=== PATIENT | female | born 1940 | race Caucasian/White ===

== ENCOUNTER 2018-06-21 13:24 | Emergency (ER) | payer OTHER, MEDICARE ==
[2018-06-21 13:42] VITALS: TEMP 98.2; BMI 31.6
--- NOTE | 2018-06-21 13:51 | PDOC ---
History of Present Illness - General Chief Complaint: Blood Pressure Problem Stated Complaint: BLOOD PRESSURE PROBLEM Time Seen by Provider: 06/21/18 13:51 - History of Present Illness Initial Comments: 06/21/18 13:51 77 year old with a history of breast Ca and osteoporosis and mitral valve prolapse presents with dizziness after eating breakfast with recorded bp of 200 systolic no nausea, diaphoresis, chest pain or shortness of breath no dysuria, no hematuria no coughing, no recent illness 06/21/18 14:02 Past History - Past Medical History Allergies/Adverse Reactions: Allergies Allergy/AdvReac Type Severity Reaction Status Date / Time meperidine HCl [From Demerol] Allergy Verified 06/21/18 13:36 povidone-iodine Allergy Verified 06/21/18 13:36 [From Betadine] soap [From Betadine] Allergy Verified 06/21/18 13:36 Home Medications: Ambulatory Orders Aspirin 81 mg PO DAILY 06/21/18 Losartan Potassium 25 mg PO BID #5 tablet 06/21/18 Cardiac Disorders: Yes (MVP) COPD: No HTN: Yes - Suicide/Smoking/Psychosocial Hx Smoking History: Unknown if ever smoked Have you smoked in the past 12 months: No Hx Alcohol Use: No Drug/Substance Use Hx: No *Physical Exam - Vital Signs Last Vital Signs Temp Pulse Resp BP Pulse Ox 98.2 F 81 18 194/72 H 98 06/21/18 13:37 06/21/18 13:37 06/21/18 13:37 06/21/18 13:37 06/21/18 13:37 - Physical Exam Comments: 06/21/18 14:23 normal exam 3- 4 beats of nystagmus with L gaze Moderate Sedation - Procedure Monitoring Vital Signs: Procedure Monitoring Vital Signs Temperature 98.2 F 06/21/18 13:37 Pulse Rate 81 06/21/18 13:37 Respiratory Rate 18 06/21/18 13:37 Blood Pressure 194/72 H 06/21/18 13:37 O2 Sat by Pulse Oximetry (%) 98 06/21/18 13:37 ED Treatment Course - LABORATORY CBC & Chemistry Diagram: 06/21/18 14:22 06/21/18 14:22 Medical Decision Making - Medical Decision Making 06/21/18 14:10 ED Course: 168/90 on L forearm, 178/90 on R forearm patient reports regular bp as 130/80 06/21/18 16:[address] and CXR without acute findings however, patient with history of mvp and w/ new acute symptoms will likely need ECHO call sent to PCP, discuss dispo and possible admission. 06/21/18 16:26 repeat bp 144/78 on R forearm 142/80 on L forearm improvement of dizzniess, no nausea Consulted Dr. Fair who feels patient may need to be started on a BP medication but will call back. 06/21/18 16:30 *DC/Admit/Observation/Transfer Diagnosis at time of Disposition: Dizziness, Hypertension - Discharge Dispostion Disposition: HOME Condition at time of disposition: Stable Decision to Admit order: No - Prescriptions Prescriptions: Losartan Potassium 25 mg PO BID #5 tablet - Referrals - Patient Instructions Printed Discharge Instructions: DI for High Blood Pressure Additional Instructions: You were seen in the ED for complaints of dizziness and elevated blood pressure. In the ED you were evaluated with labwork and imaging. Your results were unremarkable. There does not appear to be an acute need for immediate hospitalization. You are advised to follow up with your Primary Care Physician within 1 week. You were given a prescription for a short course of Losartan (anti-hypertension ) medication. Return to the ED immediately if you experience worsening dizziness, headache, palpitations, loss of consciousness, chest pain or shortness of breath. - Post Discharge Activity
[2018-06-21] MEDS ORDERED: MECLIZINE HCL 25 MG TABLET (FP) PO ONE (14:01)
[2018-06-21] MEDS ORDERED: MECLIZINE HCL 25 MG TABLET (FP) ONE (14:09)
--- NOTE | 2018-06-21 14:14 | PDOC ---
Attending Attestation - Resident Resident Name: Charleen Dorado - ED Attending Attestation I have performed the following: I have examined & evaluated the patient, The case was reviewed & discussed with the resident, I agree w/resident's findings & plan, Exceptions are as noted - HPI HPI: 06/21/18 14:12 Reports dizziness while traveling home At that time, her checked her blood pressure and it was 190s-200/100 Denies nausea, diaphoresis No chest pain or shortness of breath No fevers or chills - Physicial Exam PE: 06/21/18 14:13 GENERAL: The patient is in no acute distress. HEAD: Normal EYES: PERRLA, EOMI, sclera anicteric, conjunctiva clear. ENT: Ears normal, nares patent, oropharynx clear without exudates. Moist mucous membranes. NECK: Normal range of motion, supple without JVD, or masses. LUNGS: Breath sounds equal, clear to auscultation bilaterally. No wheezes, and no crackles. HEART:Regular rate and rhythm, normal S1 and S2 without murmur, rub or gallop. ABDOMEN: Soft, nontender, normoactive bowel sounds. No guarding, no rebound. No masses palpable. EXTREMITIES: Normal range of motion, no edema. No clubbing or cyanosis. No erythema, or tenderness. NEUROLOGICAL: Cranial nerves II through XII grossly intact. Normal speech. No focal neurological deficits. MUSCULOSKELETAL: Back non-tender to palpation, no CVA tenderness SKIN: Warm, Dry, normal turgor, no rashes or lesions noted. - Medical Decision Making 06/21/18 16:34 Twelve-lead EKG was performed and reviewed by me. There is normal sinus rhythm with a normal rate of 70 bpm. The axis is normal. The intervals are normal. There are no ST or T wave abnormalities. Impression: Normal twelve-lead EKG 06/21/18 16:42 Laboratory Tests 06/21/18 06/21/18 06/21/18 14:22 14:22 14:22 WBC 5.8 Hgb 13.8 Hct 39.4 D Plt Count 219 D BUN 23 H Creatinine 0.9 Troponin I < 0.02 B-Natriuretic Peptide 128.3 Urine Nitrite Ur Leukocyte Esterase 06/21/18 14:45 WBC Hgb Hct Plt Count BUN Creatinine Troponin I B-Natriuretic Peptide Urine Nitrite Negative Ur Leukocyte Esterase Negative Case reviewed with Dr Sandoval He agrees with pt discharge to home Start Losartan Follow up with him on Sunday (in 3 days) Pt counselled to return to the ER immediately for any new symptoms
[2018-06-21 14:56] LABS: BASO % 2.2 % (0-2.0); EOS % 5.6 % (0-4.5); HEMATOCRIT 39.4 % (32.4-45.2); HEMOGLOBIN 13.8 GM/dL (10.7-15.3); LYMPH % 24.9 % (8-40); MCH 32.4 pg (25.7-33.7); MEAN CELL VOLUME 92.7 fl (80-96); MEAN PLT VOLUME 9.2 fl (7.5-11.1); NEUT % 58.3 % (42.8-82.8); PLATELET COUNT 219 K/MM3 (134-434); RBC 4.25 M/mm3 (3.60-5.2); RDW 14.3 % (11.6-15.6); WHITE BLOOD COUNT 5.8 K/mm3 (4.0-10.0)
[2018-06-21 15:02] LABS: URINE APPEARANCE CLEAR; URINE BILIRUBIN NEGATIVE (<2.0 mg/dL); URINE COLOR STRAW; URINE GLUCOSE (UA) NEGATIVE (NEGATIVE); URINE KETONE NEGATIVE (NEGATIVE); URINE LEUK ESTERASE NEGATIVE (NEGATIVE); URINE NITRITE NEGATIVE (NEGATIVE); URINE PROTEIN NEGATIVE (NEGATIVE); URINE UROBILINOGEN NEGATIVE mg/dL (0.2-1.0)
[2018-06-21 15:16] LABS: ALBUMIN 3.7 g/dl (3.4-5.0); ALK PHOS 131 U/L (45-117); ANION GAP 7 MMOL/L (8-16); BILIRUBIN,TOTAL 0.6 mg/dL (0.2-1); BLOOD UREA NITROGEN 23 mg/dL (7-18); CHLORIDE 107 mmol/L (98-107); CO2 25 mmol/L (21-32); CREATININE 0.9 mg/dL (0.55-1.3); GLUCOSE,RANDOM 104 mg/dL (74-106); POTASSIUM 4.9 mmol/L (3.5-5.1); SGOT/AST 19 U/L (15-37); SGPT/ALT 25 U/L (13-61); SODIUM 139 mmol/L (136-145); TOT PROT 6.8 g/dl (6.4-8.2)
[2018-06-21] MEDS ORDERED: LOSARTAN POTASSIUM 25 MG TABLET PO ONE (16:39)
[2018-06-21 16:54] VITALS: BP 142/69; PULSE 80
--- NOTE | 2018-06-22 08:42 | EKG ---
Test Reason : Blood Pressure : / mmHG Vent. Rate : 070 BPM Atrial Rate : 070 BPM P-R Int : 170 ms QRS Dur : 088 ms QT Int : 426 ms P-R-T Axes : 073 -12 049 degrees QTc Int : 460 ms NORMAL SINUS RHYTHM ANTERIOR INFARCT , AGE UNDETERMINED ABNORMAL ECG WHEN COMPARED WITH ECG OF 03-MAY-2016 08:22, ANTERIOR INFARCT IS NOW PRESENT Confirmed by CRISTINA BARNARD, DWIGHT ([id number]) on 06/22/2018 8:42:22 AM Referred By: Confirmed By:DWIGHT EVANS MD
== END 2018-06-21 17:06 | disposition home or self-care (01) ==
LOC: JER 13:24
DX: I10 Essential (primary) hypertension (principal); I34.1 Nonrheumatic mitral (valve) prolapse; M19.90 Unspecified osteoarthritis, unspecified site; Z85.3 Personal history of malignant neoplasm of breast
CPT/HCPCS: 36415; 70450-TC; 71045-TC-FY; 80053; 81003; 81015; 83880; 84484; 85025; 87086; 93005; 93010; 99282-25

== ENCOUNTER 2018-07-05 14:36 | Observation (INO) | payer OTHER, MEDICARE ==
--- NOTE | 2018-07-05 15:51 | PDOC ---
Attending Attestation - HPI HPI: 07/05/18 16:04 The patient is a 77 year old female with a past medical history of HTN here today for evaluation of chest pain. The patient reports that her chest pain began a few days ago, is localized to the area of the xiphoid process, is intermittent with 10 min episodes, and is worse when lying down. She reports feeling multiple episodes over the past couple of days and came to the ER today after having an episode when driving home. Patient denies headache, lightheadedness. Denies fever, chills. Denies chest pain, shortness of breath. Denies nausea, vomiting, diarrhea, abdominal pain. Denies lower extremity edema. Denies urinary symptoms. Denies neurologic symptoms. Denies travel or suspicious food intake. Allergies: meperidine HCL, providone-iodine, soap Surgical history: cholecystectomy Family history: CAD PCP: Micah Cavanaugh - Physicial Exam PE: 07/05/18 16:08 Vitals: Triage vital signs reviewed General Appearance: No acute distress, well nourished, well developed Head: Atraumatic Chest Wall: Nontender Cardiac: Regular rate and rhythm, no murmurs, no rubs, no gallops Lungs: Clear to auscultation bilateral, good air movement bilaterally Abdomen: Soft, nondistended, normal bowel sounds, nontender to palpation Skin: Warm and dry, no rashes or lesions, no rash, no petechiae Psych: Normal mood, normal affect - Medical Decision Making 07/05/18 16:05 Documentation prepared by JOE Sims, acting as medical staff manager for Porfirio Andrews MD. The patient is a 77 year old female with a past medical history of HTN here today for evaluation of chest pain. 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 Patient also had similar episodes last night Given age heart score of 4 will need observation for cardiac workup Labs Pending. Dr. Ramos to follow up labs reasses and dispo <Porfirio Andrews - Last Filed: 07/05/18 16:19> Heart Score/ECG Review - History History: Moderately suspicious - Electrocardiogram EKG: Normal - Age Age: >/= 65 - Risk Factors Risk Factors Heart Score: Yes Hx Hypertension, Yes Positive family hx of cardiac disease Based on the list above the patient has:: 1-2 risk factors - ECG Impressions Comment:: 07/05/18 16:16 EKG performed at 1442 Demonstrates normal sinus rhythm [address] elevations or T-wave inversions Interpreted by me. <Porfirio Andrews - Last Filed: 07/05/18 16:19>
--- NOTE | 2018-07-05 16:00 | PDOC ---
History of Present Illness - General Chief Complaint: Chest Pain Stated Complaint: CHEST PAIN Time Seen by Provider: 07/05/18 15:10 History Source: Patient Exam Limitations: No Limitations - History of Present Illness Initial Comments: 07/05/18 16:00 Pt is a 77yo F with PMH of MVP, HTN (diagnosed recently) presenting to ED with chest pressure. Pt states for the past 2 days she has been experiencing chest pressure in the "subxyphoid" area every night when she is in bed, lasts for about 30 minutes and associated with difficulty catching a breath. 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 She denies syncope, palpitations, cough, fevers/chills, back pain, headaches, dizziness, leg swelling, abdominal pain, n/v/d, weakness, numbness/tingling. PMD: Sch[place] PMH: see hpi PSH: appendectomy, hysterectomy, cholecystectomy Meds: Losartan, ASA 81 Allergies: iodine, meperidine Social: denies 07/05/18 17:14 Past History - Past Medical History Allergies/Adverse Reactions: Allergies Allergy/AdvReac Type Severity Reaction Status Date / Time meperidine HCl [From Demerol] Allergy Verified 07/05/18 14:44 povidone-iodine Allergy Verified 07/05/18 14:44 [From Betadine] soap [From Betadine] Allergy Verified 07/05/18 14:44 Home Medications: Ambulatory Orders Aspirin 81 mg PO DAILY 06/21/18 Losartan/Hydrochlorothiazide [Hyzaar 100-12.5 Tablet] 1 each PO DAILY 07/05/18 Cardiac Disorders: Yes (MVP) COPD: No HTN: Yes - Suicide/Smoking/Psychosocial Hx Smoking History: Never smoked Have you smoked in the past 12 months: No Hx Alcohol Use: No Drug/Substance Use Hx: No Review of Systems - Review of Systems Constitutional: No: Chills, Fever, Weakness HEENTM: No: Symptoms Reported Respiratory: Yes: Shortness of Breath. No: Cough, SOB with Exertion, SOB at Rest Cardiac (ROS): Yes: Chest Pain. No: Lightheadedness, Palpitations, Syncope ABD/GI: No: Constipated, Diarrhea, Nausea, Vomiting, Abdominal cramping : No: Burning, Dysuria Musculoskeletal: No: Back Pain, Neck Pain Integumentary: No: Symptoms Reported Neurological: No: Headache, Numbness, Tingling *Physical Exam - Vital Signs Last Vital Signs Temp Pulse Resp BP Pulse Ox 97.7 F 99 H 16 173/77 H 99 07/05/18 14:45 07/05/18 15:29 07/05/18 15:29 07/05/18 15:29 07/05/18 15:29 - Physical Exam General Appearance: Yes: Appropriately Dressed, Obese. No: Apparent Distress HEENT: positive: EOMI, ZURI, Normal ENT Inspection Neck: positive: Trachea midline, Supple. negative: Carotid bruit, Lymphadenopathy (R), Lymphadenopathy (L) Respiratory/Chest: positive: Lungs Clear, Normal Breath Sounds. negative: Crackles, Rales, Rhonchi, Stridor, Wheezing Cardiovascular: positive: Regular Rhythm, Regular Rate, S1, S2. negative: Edema , JVD, Murmur Vascular Pulses: Carotid (R): 2+, Carotid (L): 2+, Dorsalis-Pedis (R): 2+, Doralis-Pedis (L): 2+ Gastrointestinal/Abdominal: positive: Normal Bowel Sounds, Soft. negative: Guarding, Rebound, Tenderness Musculoskeletal: negative: CVA Tenderness Extremity: positive: Normal Capillary Refill, Pelvis Stable Integumentary: positive: Normal Color, Dry, Warm Neurologic: positive: plate maker zinc II-XII NML intact, Fully Oriented, Alert, Normal Mood/ Affect, Normal Response, Motor Strength 5/5 Moderate Sedation - Procedure Monitoring Vital Signs: Procedure Monitoring Vital Signs Temperature 97.7 F 07/05/18 14:45 Pulse Rate 99 H 07/05/18 15:29 Respiratory Rate 16 07/05/18 15:29 Blood Pressure 173/77 H 07/05/18 15:29 O2 Sat by Pulse Oximetry (%) 99 07/05/18 15:29 Heart Score/ECG Review - History History: Moderately suspicious - Electrocardiogram EKG: Non specific repolarization disturbance - Age Age: >/= 65 - Risk Factors Risk Factors Heart Score: Yes Hx Hypertension Based on the list above the patient has:: 1-2 risk factors - Troponin Troponin: </= normal limit - Score Heart Score - Total: 5 ED Treatment Course - LABORATORY CBC & Chemistry Diagram: 07/05/18 15:55 07/05/18 15:55 - RADIOLOGY Radiology Studies Ordered: Category Date Time Status CHEST X-RAY PORTABLE* [RAD] Stat Radiology 07/05/18 15:36 Taken Medical Decision Making - Medical Decision Making 07/05/18 16:05 Pt is a 77yo F with PMH of MVP, HTN (diagnosed recently) presenting to ED with chest pressure. Pt states for the past 2 days she has been experiencing chest pressure in the "subxyphoid" area every night when she is in bed, lasts for about 30 minutes and associated with difficulty catching a breath. Denies chest pain at this time. Vitals: BP 170s systolic PE: benign Spoke with Dr. Cavanaugh on the phone, recommended admission. Pt has appointment with Dr. Colunga in Jul for echo and stress test. Will consult Dr. Colunga. -CXR, EKG, trop, cbc, cmp, coags Labs wnl. EKG does not show EDMAR or depressions, T wave flattening in aV:, V2. Inverion in V1. Negative trop, labs wnl. CXR does not show acute pathology. HEART score 5. Will admit tele/obs *DC/Admit/Observation/Transfer Diagnosis at time of Disposition: Chest pain Qualifiers: Chest pain type: unspecified Qualified Code(s): R07.9 - Chest pain, unspecified - Discharge Dispostion Condition at time of disposition: Good Decision to Admit order: Yes Decision to Admit order Date/Time: Decision to Admit Order Category Date Time Status Decision to Admit to Hospital Routine Admission 07/05/18 15:45 Active - Referrals - Patient Instructions - Post Discharge Activity
[2018-07-05 16:32] LABS: INR 1.03 (0.83-1.09); PROTHROMBIN TIME (PATIENT) 12.1 SEC (9.7-13.0)
[2018-07-05 16:39] LABS: ALBUMIN 4.2 g/dl (3.4-5.0); ALK PHOS 141 U/L (45-117); ANION GAP 8 MMOL/L (8-16); BILIRUBIN,TOTAL 0.6 mg/dL (0.2-1); BLOOD UREA NITROGEN 29 mg/dL (7-18); CALCIUM 9.2 mg/dL (8.5-10.1); CHLORIDE 102 mmol/L (98-107); CO2 25 mmol/L (21-32); CREATININE 1.2 mg/dL (0.55-1.3); GLUCOSE,RANDOM 102 mg/dL (74-106); POTASSIUM 4.3 mmol/L (3.5-5.1); SGOT/AST 22 U/L (15-37); SGPT/ALT 24 U/L (13-61); SODIUM 135 mmol/L (136-145); TOT PROT 7.5 g/dl (6.4-8.2)
[2018-07-05 16:47] LABS: BASO % 2.1 % (0-2.0); EOS % 3.8 % (0-4.5); HEMOGLOBIN 14.1 GM/dL (10.7-15.3); LYMPH % 24.4 % (8-40); MCH 33.4 pg (25.7-33.7); MCHC 35.3 g/dl (32.0-36.0); MEAN CELL VOLUME 94.7 fl (80-96); MEAN PLT VOLUME 9.9 fl (7.5-11.1); MONO % 7.4 % (3.8-10.2); NEUT % 62.3 % (42.8-82.8); PLATELET COUNT 184 K/MM3 (134-434); RBC 4.22 M/mm3 (3.60-5.2); RDW 13.9 % (11.6-15.6); WHITE BLOOD COUNT 6.3 K/mm3 (4.0-10.0)
[2018-07-05] MEDS ORDERED: ACETAMINOPHEN 325 MG TABLET (FP) PO PRN (17:52)
[2018-07-05] MEDS ORDERED: LOSARTAN 50MG/HCTZ 12.5MG 1 TAB (FP) PO SCH (18:00)
--- NOTE | 2018-07-05 18:05 | HP ---
Admitting History and Physical - Primary Care Physician PCP: Micah Cavanaugh - Admission Chief Complaint: I had pressure under my xiphoid process History of Present Illness: Mrs Vela is a very pleasant 77 year old female who comes in with complaint of chest pressure. She says that she has been experiencing chest pressure at night for the past 2 days. She says it lasts about 10 minutes and then resolves. She would take an aspirin after experiencing the chest pain. 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 Because of that she presented here. She says that the chest pressure is located under her xiphoid process, it does not radiate, and it is a 6/10. She has been experiencing lightheadedness as well but is unsure if it is related to her hypertension. She also has some shortness of breath as well with it. She denies passing out, fevers, chills, diaphoresis, palpitations, fluttering, abdominal pain, nausea, vomiting, diarrhea, constipation, difficulty or pain on urination, or swelling. History Source: Patient Limitations to Obtaining History: No Limitations - Past Medical History Cardiovascular: Yes: HTN, Other (Mitral valve prolapse) Musculoskeletal: Yes: Bursitis Rheumatology: Yes: Other Dermatology: Yes: Psoriasis - Past Surgical History Past Surgical History: Yes: Cataract Removal, Cholecystectomy, Hysterectomy - Smoking History Smoking history: Never smoked Have you smoked in the past 12 months: No - Alcohol/Substance Use Hx Alcohol Use: No History of Substance Use: reports: None - Social History Usual Living Arrangement: Yes: With Spouse ADL: Independent Occupation: Retired RN History of Recent Travel: No Home Medications - Allergies Allergies/Adverse Reactions: Allergies Allergy/AdvReac Type Severity Reaction Status Date / Time meperidine HCl [From Demerol] Allergy Verified 07/05/18 14:44 povidone-iodine Allergy Verified 07/05/18 14:44 [From Betadine] soap [From Betadine] Allergy Verified 07/05/18 14:44 - Home Medications Home Medications: Ambulatory Orders Aspirin 81 mg PO DAILY 06/21/18 Losartan Potassium 25 mg PO BID #5 tablet 06/21/18 Family Disease History - Family Disease History Family Disease History: Heart Disease: Father, Brother (panc ca), Other: Brother Review of Systems Findings/Remarks: Full review of systems obtained, as per HPI and otherwise negative. Physical Examination Vital Signs: Vital Signs Temperature 36.5 C 07/05/18 14:45 Pulse Rate 99 H 07/05/18 15:29 Respiratory Rate 16 07/05/18 15:29 Blood Pressure 173/77 H 07/05/18 15:29 O2 Sat by Pulse Oximetry (%) 99 07/05/18 15:29 Constitutional: Yes: Well Nourished, No Distress, Calm Eyes: Yes: Conjunctiva Clear, EOM Intact, PERRL HENT: Yes: Atraumatic, Normocephalic Cardiovascular: Yes: Regular Rate and Rhythm. No: Gallop, Murmur, Rub Respiratory: Yes: Regular, CTA Bilaterally. No: Rales, Rhonchi, Wheezes Gastrointestinal: Yes: Normal Bowel Sounds, Soft. No: Distention, Tenderness Extremities: Yes: WNL Edema: No Labs: CBC, BMP 07/05/18 15:55 07/05/18 15:55 Imaging - Results Chest X-ray: Report Reviewed, Image Reviewed EKG: Image Reviewed Problem List - Problems (1) Atypical chest pain Assessment/Plan: -admit to telemetry observation -EKG WNL -cardiac enzymes x3, first set negative -continue aspirin -cardiology consulted -ECHO and stress test ordered for outpatient, suspect can keep this appointment Code(s): R07.89 - OTHER CHEST PAIN (2) Hypertension Assessment/Plan: -patient notes her blood pressure recently elevated -on losartan HCT 50/12.5 daily -continue this -may need to increase Code(s): I10 - ESSENTIAL (PRIMARY) HYPERTENSION
[2018-07-05] MEDS ORDERED: LOSARTAN POTASSIUM 50 MG TABLET (FP) PO ONE (18:40)
[2018-07-05] MEDS ORDERED: ACETAMINOPHEN 325 MG TABLET (FP) ONE (19:12)
[2018-07-06 03:55] VITALS: BMI 34.0
--- NOTE | 2018-07-06 08:37 | CON.CARD ---
Consult Consult Specialty:: cardio - History of Present Illness Chief Complaint: cp History of Present Illness: 77 F here with CP. had been noticing chest pressure at night for the 2 days [employer]. episodes last about 10 minutes and then resolve on their own. 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 the discomfort is located near her xiphoid process, it does not radiate. happened twice last night again. typically has happened at night when in bed. similar feeling occurred 2-3 yrs ago after her cholecystectomy, resolved on its own. 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 ADMITS TO MILD BURNING/ACID SENSATION OFTEN WHEN THIS OCCURS, WITH SLIGHT SOUR TASTE IN MOUTH. also admits to a different lower sternal (higher than above) "tightness" in chest when climbs stairs at work fast. going on for > 1 yr, gradually a bit worse lately. sometimes feels tired or sob after lots of trips on stairs and sits and rests. this has NOT HAPPENED AT REST AND NO SEVERE EPISODES. no diaph, LH or severe sob with any of above sx's initial ER vitals with bp 173, HR 90s-->normalized fam hx: brother with SCD in his 30's. Sister and father [place] in 70's PMH: HTN ? MVP - Past Medical History Cardio/Vascular: Yes: HTN, Other (Mitral valve prolapse) ...: No Musculoskeletal: Yes: Bursitis Rheumatology: Yes: Other Dermatology: Yes: Psoriasis - Past Surgical History Past Surgical History: Yes: Cataract Removal, Cholecystectomy, Hysterectomy - Alcohol/Substance Use Hx Alcohol Use: No History of Substance Use: reports: None - Smoking History Smoking history: Never smoked Have you smoked in the past 12 months: No - Social History Usual Living Arrangement: With Spouse ADL: Independent Occupation: Retired RN History of Recent Travel: No Home Medications - Allergies Allergies/Adverse Reactions: Allergies Allergy/AdvReac Type Severity Reaction Status Date / Time meperidine HCl [From Demerol] Allergy Verified 07/05/18 14:44 povidone-iodine Allergy Verified 07/05/18 14:44 [From Betadine] soap [From Betadine] Allergy Verified 07/05/18 14:44 - Home Medications Home Medications: Ambulatory Orders Aspirin 81 mg PO DAILY 06/21/18 Losartan/Hydrochlorothiazide [Hyzaar 100-12.5 Tablet] 1 each PO DAILY 07/05/18 Family Disease History - Family Disease History Family Disease History: Heart Disease: Father, Brother (panc ca), Other: Brother Review of Systems - Review of Systems Constitutional: denies: Chills, Fever Eyes: denies: Eye Pain HENT: denies: Nasal Congestion Neck: denies: Stiffness Cardiovascular: denies: Palpitations Respiratory: denies: Orthopnea, PND Gastrointestinal: denies: Diarrhea, Rectal Bleeding Genitourinary: denies: Burning, Hematuria Musculoskeletal: denies: Muscle Pain Integumentary: denies: Rash Neurological: denies: Numbness, Seizure, Syncope Endocrine: denies: Excessive Sweating Hematology/Lymphatic: denies: Excessive Bleeding Vital Signs: Vital Signs Temperature 97.7 F 07/06/18 06:00 Pulse Rate 72 07/06/18 06:00 Respiratory Rate 20 07/06/18 06:00 Blood Pressure 118/64 07/06/18 06:00 O2 Sat by Pulse Oximetry (%) 97 07/06/18 03:00 Constitutional: Yes: Well Nourished, No Distress Eyes: No: Sclera Icterus HENT: No: Nasal Congestion Neck: No: Decreased ROM Respiratory: Yes: CTA Bilaterally. No: Accessory Muscle Use, Rales, Wheezes Gastrointestinal: Yes: Normal Bowel Sounds. No: Distention, Hepatomegaly, Palpable Mass, Tenderness Cardiovascular: Yes: Regular Rate and Rhythm JVD: No Carotid Bruit: No PMI: Non-Displaced Heart Sounds: Yes: S1, S2. No: Gallop Murmur: No: Systolic Murmur, Diastolic Murmur Musculoskeletal: Yes: Other (No kyphosis) Extremities: No: Cool, Cyanosis Edema: No Peripheral Pulses: 2+ Left Carotid, 2+ Right Carotid, 2+ Left Doralis Pedis, 2+ Right Dorsalis Pedis Integumentary: No: Jaundice Neurological: Yes: Alert, Oriented (x3) Psychiatric: No: Agitated - Other Data Labs, Other Data: CBC, BMP 07/05/18 15:55 07/05/18 15:55 INR, PTT INR 1.03 (0.83-1.09) 07/05/18 15:55 Troponin, BNP 07/05/18 07/05/18 15:55 22:15 Troponin I < 0.02 < 0.02 Troponin, BNP 07/05/18 07/05/18 15:55 22:15 Troponin I < 0.02 < 0.02 Laboratory Tests 07/05/18 07/05/18 07/05/18 15:55 15:55 22:15 WBC 6.3 Hgb 14.1 Plt Count 184 Sodium 135 L Potassium 4.3 Carbon Dioxide 25 BUN 29 H Creatinine 1.2 AST 22 ALT 24 Troponin I < 0.02 < 0.02 Assessment/Plan ECG: NSR, normal axis. no pathological q waves (v2 only). no ischemic ST-T findings CXR: clear lungs/pleura tele: NSR, artifact chest pain: -2 separate sx's. -presenting complaint is very likely dyspepsia/GERD related by history. no concerning anginal sx features. -troponin neg x 3. ECG non-ischemic. -her chronic, stable exertional-only cp sx may be anginal and requires further evaluation on an elective basis (in light of negative biomarkers and ecg here, and no history features suggestive of ACS). -she is scheduled for stress test in approx 3-4 wks, and i advised her that i will d/w dr giraldo and move up her stress test to within approx 1 week from discharge. HTN: -initially bp elevated but normalized rapidly -continue home meds OK FOR D/C
[2018-07-06] MEDS ORDERED: ASPIRIN 81 MG CHEWABLE TABLETS PO SCH (10:00)
--- NOTE | 2018-07-06 10:54 | DS ---
Physical Examination Vital Signs: Vital Signs Temperature 36.5 C 07/06/18 06:00 Pulse Rate 72 07/06/18 06:00 Respiratory Rate 19 07/06/18 09:00 Blood Pressure 118/64 07/06/18 06:00 O2 Sat by Pulse Oximetry (%) 98 07/06/18 09:00 Constitutional: Yes: Well Nourished, No Distress, Calm Cardiovascular: Yes: Regular Rate and Rhythm. No: Gallop, Murmur, Rub Respiratory: Yes: Regular, CTA Bilaterally. No: Rales, Rhonchi, Wheezes Gastrointestinal: Yes: Normal Bowel Sounds, Soft. No: Distention, Tenderness Extremities: Yes: WNL Edema: No Labs: CBC, BMP 07/05/18 15:55 07/05/18 15:55 Discharge Summary Reason For Visit: CHEST PAIN Current Active Problems Chest pain (Acute) Hospital Course: Mrs Vela is a very pleasant 77 year old female who came in with atypical chest pain. She was admitted to telemetry under observation. Her EKG was normal sinus rhythm without abnormalities. Her chest x-ray was reviewed and also normal. Cardiac enzymes x3 were sent and negative. Her chest pain did not recur while here. She was seen by cardiology and cleared. She is safe to be discharged home. Condition: Good - Instructions Diet, Activity, Other Instructions: resume previous diet and activity Referrals: Micah Cavanaugh MD [Primary Care Provider] - Franchesca Colunga MD [Staff Physician] - Disposition: HOME - Home Medications Comprehensive Discharge Medication List: Ambulatory Orders Aspirin 81 mg PO DAILY 06/21/18 Losartan/Hydrochlorothiazide [Hyzaar 100-12.5 Tablet] 1 each PO DAILY 07/05/18
[2018-07-06 11:26] VITALS: BP 132/78; PULSE 88; TEMP 97.8
--- NOTE | 2018-07-06 13:17 | EKG ---
Test Reason : Blood Pressure : / mmHG Vent. Rate : 085 BPM Atrial Rate : 085 BPM P-R Int : 168 ms QRS Dur : 084 ms QT Int : 392 ms P-R-T Axes : 077 012 066 degrees QTc Int : 466 ms NORMAL SINUS RHYTHM NONSPECIFIC ST ABNORMALITY ABNORMAL ECG WHEN COMPARED WITH ECG OF 21-JUN-2018 14:53, CRITERIA FOR ANTERIOR INFARCT ARE NO LONGER PRESENT Confirmed by MARY IBRAHIM MD ([id number]) on 07/06/2018 1:17:12 PM Referred By: Confirmed By:MARY IBRAHIM MD
[2018-07-06] MEDS ORDERED: LOSARTAN 50MG/HCTZ 12.5MG 1 TAB (FP) PO SCH (22:00)
== END 2018-07-06 11:33 | disposition home or self-care (01) ==
LOC: JER 14:36 → JERBED 15:45 → J4S 21:35
PROVIDERS: ADMIT Internal Medicine; ATTEND Internal Medicine
DX: R07.89 Other chest pain (principal); I10 Essential (primary) hypertension; I34.1 Nonrheumatic mitral (valve) prolapse
CPT/HCPCS: 36415; 71045-TC-FY; 80053; 82550; 84484; 85025; 85610; 93005; 93010; 99283-25; G0378